=== PATIENT | female | born 1980 | race African-American/Black ===

== ENCOUNTER 2019-02-10 20:18 | Emergency (ER) | payer MEDICAID, OTHER ==
[~2019-02-10] VITALS: Ht 160 cm; Wt 99.8 kg
[2019-02-10 20:28] VITALS: BP 139/89
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
--- NOTE | 2019-02-10 20:54 | NUR ---
ED Nurse Note: Patient ambulates with steady gait to the restroom. Urine specimen collected and sent to lab.
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
--- NOTE | 2019-02-10 21:20 | NUR ---
ED Nurse Note: Went down to Xray.
--- NOTE | 2019-02-10 21:49 | NUR ---
ED Nurse Note: Came back from xray.
[2019-02-10] MEDS ORDERED: IBUPROFEN600 MG ORAL (22:11)
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
[2019-02-10 22:21] VITALS: BP 129/76
[2019-02-10 22:22] VITALS: BP 129/76
--- NOTE | 2019-02-10 22:22 | NUR ---
ED Nurse Note: Pt cleared by ERMD for discharge. DC instructions/prescription was given and explained to pt and verbalized understanding of teachings. All medical devices such as ID band removed. Pt is AAO x4, ambulatory and left with all personal belongings. Accompanied by family member.
== END 2019-02-10 22:22 | disposition home or self-care (01) ==
LOC: EMR 20:49
DX: S16.1XXA Strain of muscle, fascia and tendon at neck level, initial encounter (principal); S39.012A Strain of muscle, fascia and tendon of lower back, initial encounter; Z86.73 Personal history of transient ischemic attack (TIA), and cerebral infarction without residual deficits; V43.52XA Car driver injured in collision with other type car in traffic accident, initial encounter; Y92.410 Unspecified street and highway as the place of occurrence of the external cause
CPT/HCPCS: 72020; 72040; 81025; Z7502; 99284